=== PATIENT | male | born 1985 | race Caucasian/White ===

== ENCOUNTER 2019-10-11 14:12 | Emergency (ER) | payer OTHER, SELFPAY ==
[2019-10-11 14:19] VITALS: BP 120/72; PULSE 60; RESP 16; TEMP 35.9; O2SAT 98
--- NOTE | 2019-10-11 14:29 | ED.SKABFB ---
HPI - Skin/Abscess/Foreign Bdy General Chief complaint: Skin/Abscess/Foreign Body Stated complaint: INSECT STING Time Seen by Provider: 10/11/19 14:25 Source: patient and RN notes reviewed Mode of arrival: ambulatory Limitations: no limitations History of Present Illness HPI narrative: Patient presents today complaining of an insect bite to his right calf that was sustained 3 days ago. He is unsure what kind of insect bit him, but the calf has become swollen and red since that time. It also itches. Denies pain. He has been using topical hydrocortisone without relief. MD complaint: insect bite/sting Related Data Allergies Allergy/AdvReac Type Severity Reaction Status Date / Time No Known Allergies Allergy Unverified 10/11/19 14:19 Review of Systems Review of Systems: Narrative: CONSTITUTIONAL: Denies body aches, fever, chills, or sweats. EYES: Denies visual changes, redness, or discharge. ENT: Denies rhinorrhea, congestion, sore throat, or otalgia. CARDIOVASCULAR: Denies chest pain, palpitations, or edema. RESPIRATORY: Denies cough or dyspnea. GASTROINTESTINAL: Denies abdominal pain, nausea, vomiting, or diarrhea. GENITOURINARY: Denies dysuria or hematuria. SKIN: Denies rash, itching, or wounds. Insect bite to right calf MUSCULOSKELETAL: Denies back pain, joint pain, or myalgia. NEUROLOGIC: Denies headache, numbness, tingling, or weakness. PSYCH: Denies depression or anxiety. PMFSH Social History Social History Smoking status: Never smoker Alcohol intake: never Comments At time of signature, I have reviewed and agree with nursing past medical, surgical, social and family history unless otherwise noted. Please see nursing chart for further information. There is no relevant family history pertinent to the presenting complaint Exam Narrative: Exam Narrative: GENERAL: Well-appearing, well-nourished, and in no acute distress. HEAD: Normocephalic, atraumatic. EYES: EOMI. No redness or drainage. Conjunctivae normal. ENT: Mucous membranes pink and moist. NECK: Normal AROM. CHEST: No respiratory distress. EXTREMITIES: Normal range of motion. SKIN: Warm, dry, no rash. Capillary refill normal. Normal skin turgor.6x12 cm area of erythema to the right posterior calf. Nontender to palpation. Patient does have some 1+ distal edema. Distal sensation intact. Capillary refill normal. Posterior tibial pulse normal. NEURO: No focal deficits. Alert and oriented x3. Gait steady. PSYCH: Normal affect. No signs of depression or anxiety. Course Vital Signs Vital signs: Vital Signs Temperature 96.7 F L 10/11/19 14:19 Pulse Rate 60 10/11/19 14:19 Respiratory Rate 16 10/11/19 14:19 Blood Pressure 120/72 10/11/19 14:19 Pulse Oximetry 98 10/11/19 14:19 Temperature 96.7 F L 10/11/19 14:19 Pulse Rate 60 10/11/19 14:19 Respiratory Rate 16 10/11/19 14:19 Blood Pressure 120/72 10/11/19 14:19 Pulse Oximetry 98 10/11/19 14:19 Reviewed MDM - Skin/Abscess/Foreign Bdy Differential Diagnosis Differential diagnosis: Likely abscess of skin or subcutaneous tissue, cellulitis, insect bites, impetigo and contact dermatitis Critical Care Time Critical Care Time Critical Care Time: No Discharge Plan Discharge Clinical Impression: Infected insect bite Qualifiers: Encounter type: initial encounter Qualified Code(s): W57.XXXA - Bitten or stung by nonvenomous insect and other nonvenomous arthropods, initial encounter Cellulitis Qualifiers: Site of cellulitis: extremity Site of cellulitis of extremity: lower extremity Laterality: right Qualified Code(s): L03.115 - Cellulitis of right lower limb Patient Disposition: Home, Self-Care Condition: Stable Instructions: Antibiotic Form, Cellulitis (DC) Additional Instructions: Please take the Keflex as prescribed until gone. Take Tylenol or ibuprofen at home for pain. You may take Benadryl or another antihistamine for itching. Follow-u
== END 2019-10-11 14:34 | disposition home or self-care (01) ==
PROVIDERS: Emergency Provider Nurse Practitioner
DX: S80.861A Insect bite (nonvenomous), right lower leg, initial encounter (principal); L03.115 Cellulitis of right lower limb; W57.XXXA Bitten or stung by nonvenomous insect and other nonvenomous arthropods, initial encounter
CPT/HCPCS: 99213; G0463

== ENCOUNTER 2020-06-27 20:52 | Emergency (ER) | payer OTHER, SELFPAY ==
--- NOTE | ~2020-06-27 | XR_ITS ---
EXAMINATION: XR foot LT min 3V DATE: 06/27/2020 21:53 INDICATION: Left great toe pain. Fall. TECHNIQUE: 4 views of left foot were obtained. COMPARISON: None. FINDINGS: Bone alignment is normal. No fracture. There is mild osteoarthritis of talonavicular joint. There is an enthesophyte at posterior aspect of calcaneal tuberosity. IMPRESSION: 1. No fracture. Reviewed, dictated and finalized at location A. IMPRESSION: 1. No fracture.
--- NOTE | ~2020-06-27 | XR_ITS ---
EXAMINATION: XR wrist RT 2V DATE: 06/27/2020 21:53 INDICATION: Right wrist deformity. Fall. TECHNIQUE: 2 views of right wrist were obtained. COMPARISON: None. FINDINGS: There is a comminuted fracture of distal radius with involvement of the distal articular luna rface and distal radioulnar joint. The main distal fracture fragment demonstrates impaction, dorsal a ngulation, and 9 mm dorsal displacement. There is 36 degrees dorsal tilt of the distal articular surf niall. There is an avulsion fracture of the ulnar styloid. There is mild osteoarthritis of first carpom etacarpal joint. IMPRESSION: 1. Comminuted fracture of distal radius. 2. Avulsion fracture of the ulnar styloid. Reviewed, dictated and finalized at location A.
--- NOTE | ~2020-06-27 | XR_ITS ---
EXAMINATION: XR toe 1st LT min 2V DATE: 06/27/2020 21:52 INDICATION: Left great toe injury and pain. TECHNIQUE: 2 views of left great toe were obtained. COMPARISON: None. FINDINGS: Bone alignment is normal. No fracture. Joint spaces are well maintained. IMPRESSION: 1. No fracture. Reviewed, dictated and finalized at location A. IMPRESSION: 1. No fracture.
--- NOTE | ~2020-06-27 | XR_ITS ---
EXAMINATION: XR wrist RT 2V DATE: 06/27/2020 23:12 INDICATION: Distal right radius fracture status post reduction. TECHNIQUE: 2 views of right wrist were obtained. COMPARISON: Right wrist radiographs at 9:46 PM FINDINGS: There is a comminuted fracture of distal radius with involvement of the distal radioulnar j oint and distal articular surface. The main distal fracture fragment demonstrates 7 mm posterior disp lacement, impaction, and dorsal angulation. There is 14 degrees dorsal tilt of the distal articular s urface. There is an avulsion fracture of the ulnar styloid. Joint spaces are normal. Cast material is noted. IMPRESSION: 1. Comminuted fracture of distal radius with improvement in alignment. 2. Avulsion fracture of the ulnar styloid. Reviewed, dictated and finalized at location A.
[2020-06-27 20:54] VITALS: BP 137/77; PULSE 71; RESP 18; TEMP 36.4; O2SAT 99
--- NOTE | 2020-06-27 22:07 | ED.UPPEXIN ---
HPI - Extremity Injury (Upper) General Chief Complaint: Extremity Injury, Upper Stated Complaint: Right Wrist Injury Time Seen by Provider: 06/27/20 21:41 History of Present Illness HPI narrative: Fall onto outstretched right hand this evening while playing hockey. Obvious deformity to the right wrist. Moderate pain. Worse with movement. Sensation and motor intact in all fingers. He denies any other pain or injury. Related Data Allergies Allergy/AdvReac Type Severity Reaction Status Date / Time No Known Allergies Allergy Unverified 10/11/19 14:19 Review of Systems Review of Systems: All systems reviewed & are unremarkable except as noted in HPI and below Constitutional: Constitutional: Denies fever(s) Eyes: Eyes: Reports no additional eye complaints ENT: Reports system reviewed and no additional complaints, except as documented Cardiovascular: Cardiovascular: Denies chest pain Respiratory: Respiratory: Denies dyspnea Gastrointestinal: Gastrointestinal: Denies abdominal pain Musculoskeletal: Musculoskeletal: Denies back pain Neurologic: Denies confusion, Denies headache(s) and Denies weakness PMF Social History Social History Smoking status: Never smoker Alcohol intake: never Exam Const: General: healthy appearing, no acute distress and alert Orientation/consciousness: patient oriented x3 HENMT: Head: normal to inspection Neck: Neck: normal visual inspection Chest: Chest palpation & inspection: normal inspection of the chest Resp: Effort & Inspection: normal respiratory effort Auscultation: clear to auscultation bilaterally Cardio: Rate: regular rate Rhythm: regular rhythm Other: 2+ right radial. Brisk capillary refill Skin: General skin exam: normal color Neuro: General: patient oriented x3 and moves all extremities Gait exam (Neuro): Normal gait present Extrem: Other: obvious deformity of right wrist Course Vital Signs Vital signs: Vital Signs Temperature 36.4 C L 06/27/20 20:54 Pulse Rate 71 06/27/20 20:54 Respiratory Rate 18 06/27/20 20:54 Blood Pressure 137/77 06/27/20 20:54 Pulse Oximetry 99 06/27/20 20:54 Temperature 36.4 C L 06/27/20 20:54 Pulse Rate 64 06/28/20 00:16 Respiratory Rate 18 06/28/20 00:16 Blood Pressure 108/52 L 06/28/20 00:16 Pulse Oximetry 100 06/28/20 00:16 Procedures Orthopedic Fracture Reduction Fracture #1: Fracture Reduction Location: radius and ulna Analgesia: hematoma block Pre-Procedure Neuro Vascular Exam: normal Technique: direct manipulation Post Reduction X-rays Demonstrate: other (Significnat reduction with residual dorsal displacement) Post-reduction neuro exam: intact Post-reduction vascular exam: intact Splint Applied: Yes Patient Tolerated Procedure: well Orthopedic Splinting/Casting Injury #1: Side: right Upper Extremity Injury Location: wrist Splint: customized in ED OCL: volar Pre-Procedure Neuro Vascular Exam: normal Post-Procedure Neuro Vascular Exam: normal MDM - Extremity Injury (Upper) MDM Narrative Medical decision making narrative: Dr. Erickson recommends hand or trauma follow-up [facility] reviewed the films and would like him transferred. Differential Diagnosis Differential diagnosis: Likely fracture of wrist Imaging Data Radiologist's impression: ITS Impressions Toe X-Ray 06/27/20 21:54 IMPRESSION: 1. No fracture. Foot X-Ray 06/27/20 21:55 IMPRESSION: 1. No fracture. Wrist X-Ray 06/27/20 21:56 IMPRESSION: 1. Comminuted fracture of distal radius. 2. Avulsion fracture of the ulnar styloid. Wrist X-Ray 06/27/20 23:16 IMPRESSION: 1. Comminuted fracture of distal radius with improvement in alignment. 2. Avulsion fracture of the ulnar styloid. Discharge Plan Discharge Clinical Impressi
[2020-06-27] MEDS: MORPHINE SULFATE (*CRX) 4 MG/ML INJ IV PUSH (22:44)
[2020-06-28 00:16] VITALS: BP 108/52; PULSE 64; RESP 18; O2SAT 100
[2020-06-28 00:25] VITALS: BP 108/52; PULSE 64; RESP 18; O2SAT 100
== END 2020-06-28 00:25 | disposition short-term general hospital (02) ==
PROVIDERS: Emergency Provider Emergency Medicine
DX: S52.591A Other fractures of lower end of right radius, initial encounter for closed fracture (principal); S52.611A Displaced fracture of right ulna styloid process, initial encounter for closed fracture; Y93.22 Activity, ice hockey; W18.30XA Fall on same level, unspecified, initial encounter
CPT/HCPCS: 25605; 73100; 73630; 73660; 96374; 99285; A4565; J2270

== ENCOUNTER 2022-01-31 08:04 | Emergency (ER) | payer OTHER, SELFPAY ==
--- NOTE | 2022-01-31 08:09 | ED.URI ---
HPI - URI/Sore Throat General Chief Complaint: Upper Respiratory Infection Stated Complaint: FEVER/CHILLS Time Seen by Provider: 01/31/22 08:09 Source: patient and RN notes reviewed History of Present Illness HPI Narrative: Patient is a 36-year-old male who presents to the Urgent Care with complaints of fever and chills. Patient also reports of a slight cough without dyspnea. Patient states that his mother tested positive for COVID last week and she made the entire family a casserole. Patient states his symptoms started this morning. States that he did have a negative COVID test at home. Patient is not taking anything [id number] for his symptoms. No other acute complaints. No acute distress noted. Patient aware of the plan of care. Some parts of this dictation were generated by voice recognition software and may contain typographical and/or grammatical inaccuracies. Related Data Home Medications Medication Instructions Recorded Confirmed No Home Medications 01/31/22 01/31/22 Allergies Allergy/AdvReac Type Severity Reaction Status Date / Time No Known Allergies Allergy Verified 01/31/22 08:13 Review of Systems Review of Systems: CONSTITUTIONAL: Reports of fever chills EYES: Denies visual changes, redness, or discharge. ENT: Denies rhinorrhea, congestion, sore throat, or otalgia. CARDIOVASCULAR: Denies chest pain, palpitations, or edema. RESPIRATORY: Reports a mild cough without dyspnea GASTROINTESTINAL: Denies abdominal pain, nausea, vomiting, or diarrhea. GENITOURINARY: Denies dysuria or hematuria. SKIN: Denies rash or itching. MUSCULOSKELETAL: Denies back pain, joint pain, or myalgia. NEUROLOGIC: Denies headache, numbness, or weakness. All other systems reviewed are negative, except as documented in HPI. [facility] Social History Social History Smoking status: Never smoker Alcohol intake: current Drinks per week: 4 Substance use type: does not use Gender identity (if verbalized by the patient): Male Sexual Orientation (if Verbalized by the Patient): Straight or Heterosexual Comments At the time of my signature, I reviewed and agree with the nursing past medical, surgical, social, and family history. There is no relevant family history pertinent to the patient complaint. Exam Narrative: GENERAL: This is a well-nourished, well-developed patient, in no apparent distress. HEAD: normocephalic, atraumatic. EYES: PERRL. Sclera clear/white. Vision is grossly intact. EARS: External ears normal, auditory canals clear and without drainage, TMs normal without perforation. Hearing grossly intact. NOSE: External nose normal with no obvious nasal discharge, nares without redness, no rhinorrhea. THROAT: Mucous membranes moist, posterior pharynx clear. Moderate postnasal drainage NECK: Neck supple CARDIOVASCULAR: Regular rate and rhythm without murmurs, gallops, or rubs. RESPIRATORY: Clear to auscultation. Breath sounds equal bilaterally. No wheezes, rales, or rhonchi. SKIN: warm, intact with no suspicious lesions or rash, good texture and turgor. NEURO: awake, alert, and oriented to person, place and time. There were no obvious focal neurologic abnormalities. EXTREMITIES: No clubbing, cyanosis, or edema. Course Course Level of Care: Express Care Visit Vital Signs Vital signs: Vital Signs Temperature 99.4 F 01/31/22 08:26 Pulse Rate 87 01/31/22 08:26 Respiratory Rate 16 01/31/22 08:26 Blood Pressure 119/75 01/31/22 08:26 Pulse Oximetry 100 01/31/22 08:26 Temperature 99.4 F 01/31/22 08:26 Pulse Rate 87 01/31/22 08:26 Respiratory Rate 16 01/31/22 08:26 Blood Pressure 119/75 01/31/22 08:26 Pulse Oximetry 100 01/31/22 08:26 Reviewed MDM - URI/Sore Throat MDM Narrative Medical decision making narrative: Reviewed lab results with the patient. He is aware that rapid COVID and influenza were both nega
[2022-01-31 08:26] VITALS: BP 119/75; PULSE 87; RESP 16; TEMP 37.4; O2SAT 100
== END 2022-01-31 08:30 | disposition home or self-care (01) ==
PROVIDERS: Emergency Provider Nurse Practitioner Family
DX: B34.9 Viral infection, unspecified (principal); Z20.822 Contact with and (suspected) exposure to COVID-19
CPT/HCPCS: 87426; 87804; 99213; C9803; G0463

== ENCOUNTER 2022-10-09 07:24 | Outpatient (CLI) | payer OTHER, SELFPAY ==
[2022-10-09 08:02] LABS: Hematocrit 46.5 % (42.0-52.0); Hemoglobin 15.5 g/dL (14.0-18.0); Mean Corpuscular HGB Conc 33.3 g/dl (32-36); Mean Corpuscular Hemoglobin 29.7 pg (26-34); Mean Corpuscular Volume 89.1 fl (80-100); Mean Platelet Volume 11.5 fl (7.4-10.4); Platelet Count Result 175 k/mm3 (150-375); Red Blood Count 5.22 M/mm3 (4.6-6.20); Red Cell Distribution Width 13.5 % (11.5-14.5); White Blood Count 6.7 K/mm3 (4.5-10.0)
[2022-10-09 08:03] LABS: Appearance Urine Clear (Clear); Bilirubin Urine Negative (Negative); Blood Urine Negative (Negative); Color Urine Yellow (Yellow); Glucose Urine UA Negative (Negative); Ketones Urine Negative (Negative); Leukocyte Esterase Ur Negative LEU/UL (NEGATIVE); Nitrate Urine Negative (Negative); Protein Urine Negative (Negative); Specific Grav Ur 1.018 (1.001-1.035); pH Urine 6.5 (5.0-9.0)
[2022-10-09 08:12] LABS: Alanine Aminotransferase 21 U/L (6-50); Albumin Level 4.6 g/dL (3.5-5.1); Alkaline Phosphatase 50 U/L (38-126); Anion Gap 5 mmol/L (8-16); Aspartate Amino Transferase 31 U/L (17-59); Bilirubin,Total 1.6 mg/dL (0.2-1.3); Blood Urea Nitrogen 20 mg/dL (9-20); Calcium 9.4 mg/dL (8.4-10.2); Carbon Dioxide 30 mmol/L (22-30); Chloride 102 mmol/L (98-107); Cholesterol 242 mg/dL (0-200); Estimated Glomerular Filt Rate > 60; Glucose 84 mg/dL (65-110); HDL Direct 50 mg/dL; Sodium 137 mmol/L (137-145); Triglycerides 117 mg/dL (<150)
[2022-10-09 08:19] LABS: Add Urine Microscopic? NO
[2022-10-09 08:23] LABS: LDL Cholesterol Direct 129 mg/dL
== END 2022-10-09 07:25 | disposition home or self-care (01) ==
PROVIDERS: PCP Family Medicine; Visit Provider Family Medicine
DX: Z00.00 Encounter for general adult medical examination without abnormal findings (principal)
CPT/HCPCS: 36415; 80053; 80061; 81003; 84443; 85027

== ENCOUNTER → 2023-02-25 15:21 | Outpatient (CLI) | payer OTHER, SELFPAY ==
--- NOTE | ~2023-02-25 | US_ITS ---
EXAMINATION: US soft tissue LE LT DATE: 02/25/2023 15:43 INDICATION: Localized swelling, mass or lump at the infrapatellar left lower limb. TECHNIQUE: Multiple grayscale and Doppler ultrasound images of the left infrapatellar region of erick rn were obtained. COMPARISON: None FINDINGS: Focal mild soft tissue swelling with subtle reticular pattern of decreased echogenicity in the subcut aneous fat likely related to edema along the anterior margin of the intact appearing visualized porti on of the patellar tendon. No discrete fluid collection to suggest bursitis, abscess or hematoma. Fat deep to the patellar tendon is unremarkable. IMPRESSION: 1. Nonspecific mild subcutaneous edema overlying the patellar tendon. Reviewed, dictated and finalized at location A. [employer]
== END ==
PROVIDERS: PCP Physician Assistant; Visit Provider Physician Assistant
DX: R22.42 Localized swelling, mass and lump, left lower limb (principal)
CPT/HCPCS: 76882

== ENCOUNTER 2023-11-04 09:56 | Outpatient (CLI) | payer OTHER, SELFPAY ==
--- NOTE | ~2023-11-04 | XR_ITS ---
EXAMINATION: XR chest 2V 11/04/2023 10:13 INDICATION: Wheezing PROCEDURE: 2 view chest COMPARISON: 04/24/2009 FINDINGS: The lungs are clear. The cardiomediastinal silhouette is within normal limits. There are no pleural effusions. There is no pneumothorax suspected. IMPRESSION: 1: NO ACUTE CARDIOPULMONARY DISEASE. Reviewed, dictated and finalized at location B.
== END 2023-11-04 09:57 | disposition home or self-care (01) ==
PROVIDERS: PCP Family Medicine; Visit Provider Family Medicine
DX: R06.2 Wheezing (principal)
CPT/HCPCS: 71046